=== PATIENT | male | born 1995 | race Caucasian/White ===

== ENCOUNTER 2020-12-09 08:08 | Emergency (ER) | payer OTHER ==
[~2020-12-09] VITALS: Ht 177.8 cm; Wt 90.7 kg
[~2020-12-09 08:08] MED LIST: Cleocin HCl300 MG PO; NAPR550 PO; Ultram50 MG PO
[2020-12-09] MEDS ORDERED: Norco 5-325 Ta1 EACH PO (09:03)
[2020-12-09] MEDS ORDERED: Cleocin HCl300 MG PO (09:03)
== END 2020-12-09 09:11 | disposition home or self-care (01) ==
LOC: ER 08:08
DX: K05.30 Chronic periodontitis, unspecified (principal); K00.6 Disturbances in tooth eruption
CPT/HCPCS: 99282